=== PATIENT | female | born 1975 | race African-American/Black ===

== ENCOUNTER 2018-07-06 10:55 | Emergency (ER) | payer OTHER ==
--- NOTE | 2018-07-06 11:02 | ED Physician Documentation ---
PD HPI UPPER EXT INJURY - Stated complaint Stated Complaint: R ARM INJURY - History obtained from History obtained from: Patient - History of Present Illness Location: Right, Forearm Type of injury: Fall (was carrying heavy object when she tripped and fell forward, and the object pressured onto her forearm and caused it to bend. She felt a snap and pain in forearm right.) Where injury occurred: Work Timing - onset: Today Timing - details: Abrupt onset Worsened by: Moving, Palpating Associated symptoms: Swelling. No: Weakness, Numbness Similar symptoms before: Has not had sx before Recently seen: Not recently seen Review of Systems Constitutional: denies: Fever Nose: denies: Rhinorrhea / runny nose, Congestion Throat: denies: Sore throat Respiratory: denies: Cough GI: denies: Vomiting, Diarrhea Skin: denies: Abrasion (s), Laceration (s) Neurologic: denies: Focal weakness, Numbness PD PAST MEDICAL HISTORY - Past Medical History Cardiovascular: None Respiratory: None Neuro: None Endocrine/Autoimmune: None - Present Medications Home Medications: Ambulatory Orders Medication Instructions Recorded Confirmed Hydrocodone/Acetaminophen [[place] 1 each PO Q6H PRN #20 tablet 07/06/18 5-325 Tablet] Naproxen 500 mg PO BID #20 tablet 07/06/18 - Allergies Allergies/Adverse Reactions: Allergies Allergy/AdvReac Type Severity Reaction Status Date / Time No Known Drug Allergies Allergy Verified 07/06/18 11:05 PD ED PE NORMAL - Vitals Vital signs reviewed: Yes - General General: Alert and oriented X 3, Well developed/nourished - Derm Derm: Normal color, Warm and dry - Extremities Extremities: Other (right mid forearm with tenderness and swelling ulnar side mid forearm. Normal pulses at wrist. Hand and fingers not tender. ) - Neuro Neuro: Alert and oriented X 3, No motor deficit, No sensory deficit, Normal speech Results - Vitals Vitals: Vital Signs - 24 hr 07/06/18 07/06/18 07/06/18 11:02 11:08 12:33 Temperature 36.4 C L Heart Rate 72 77 72 Respiratory 18 16 16 Rate Blood Pressure 174/149 H 170/113 H 169/104 H O2 Saturation 100 98 95 Oxygen O2 Source Room air - Rads (name of study) right forearm Radiology: Prelim report reviewed, EMP read contemporaneously (mid shaft ulnar fracture minimally displaced and nonangulated. Radius not injured. ) Procedures - Splint (location) right forearm Splint applied by: Tech Type of splint: Fiberglass, Sugar tong Other: Patient tolerated well, No complications, Neurovascular intact, Sling provided Departure - Departure Disposition: 01 Home, Self Care Clinical Impression: Accidental fall Qualifiers: Encounter type: initial encounter Qualified Code(s): W19.XXXA - Unspecified fall, initial encounter Ulnar shaft fracture Qualifiers: Encounter type: initial encounter Fracture type: closed Fracture morphology: transverse Fracture alignment: nondisplaced Laterality: right Qualified Code(s): S52.224A - Nondisplaced transverse fracture of shaft of right ulna, initial encounter for closed fracture Condition: Stable Record reviewed to determine appropriate education?: Yes Instructions: ED Fx Forearm Radius Ulna No Redu Requ Follow-Up: [facility] [Provider Group] Prescriptions: Hydrocodone/Acetaminophen [[place] 5-325 Tablet] 1 each PO Q6H PRN #20 tablet PRN Reason: Pain Naproxen 500 mg PO BID #20 tablet Comments: Keep the arm splinted and use the sling for elevation. Rest ice and elevate the arm often to reduce swelling. Call the orthopedic clinic today for an appointment later this week or early next week for recheck and a change to a c ast. Use some anti-inflammatories such as naproxen twice daily for the next 7- 10 days. Add Tylenol or hydrocodone as needed for pain. Minimal use of the right arm, meaning just dexterity use of the fingers, for the next 2-3 weeks or until otherwise advised by orthopedics. He will be in the cast for likely 4-6 weeks. Forms: Activity restrictions Discharge Date/Time: 07/06/18 13:28
[2018-07-06] MEDS ORDERED: KETOROLAC 30 MG/ML VIAL IVP STA (11:16)
[2018-07-06] MEDS ORDERED: MORPHINE 10 MG/ML VIAL IVP STA (11:16)
[2018-07-06 12:34] VITALS: BP 169/104
--- NOTE | 2018-07-06 13:06 | XRAY Report ---
Reason: fell and had forearm pain Procedure Date: 07/06/2018 Accession Number: [id number] / [id number] Procedure: XR - Forearm RT CPT Code: FULL RESULT: EXAM: RIGHT FOREARM RADIOGRAPHY EXAM DATE: 07/06/2018 12:04 PM. CLINICAL HISTORY: Fell and had forearm pain. COMPARISON: None. TECHNIQUE: 2 views. FINDINGS: Bones: Acute, mildly comminuted right ulnar fracture with 2 mm of medial and 5 mm of posterior displacement of the more distal diaphyseal fragment. No fracture of the distal right humerus or right radius. Joints: Normal. No effusions or subluxations in the visualized wrist or elbow joints. Soft Tissues: Mid right forearm swelling noted. IMPRESSION: 1. Acute, mildly comminuted mid right ulnar fracture with 2 mm of medial and 5 mm of posterior displacement of the more distal diaphyseal fragment. 2. Normal alignment. 3. Mid right forearm swelling. RADIA
== END 2018-07-06 13:28 | disposition home or self-care (01) ==
LOC: ED 10:55
DX: S52.224A Nondisplaced transverse fracture of shaft of right ulna, initial encounter for closed fracture (principal); W01.198A Fall on same level from slipping, tripping and stumbling with subsequent striking against other object, initial encounter; Y93.89 Activity, other specified; Y99.0 Civilian activity done for income or pay
CPT/HCPCS: 29105; 96374; 96375; 99283

== ENCOUNTER 2018-08-03 08:09 | Day surgery (SDC) | payer OTHER ==
[~2018-08-03 08:09] MED LIST: ceFAZolin 2 GM/50 ML 0 GM/0 ML BAG IV ONE
[2018-08-03 08:29] VITALS: BP 169/124
[2018-08-03 08:36] LABS: HCG UR QUAL NEGATIVE
== END 2018-08-03 08:10 | disposition home or self-care (01) ==
LOC: SDS 08:09
PROVIDERS: ATTEND Orthopaedic Surgery
DX: Z53.09 Procedure and treatment not carried out because of other contraindication (principal)
CPT/HCPCS: 81025

== ENCOUNTER 2021-09-09 16:22 | Outpatient (CLI) | payer MEDICAID ==
--- NOTE | 2021-09-10 09:11 | XRAY Report ---
PROCEDURE: Knee 3 View LT INDICATIONS: PAIN,JOINT KNEE LEFT TECHNIQUE: 3 views of the left knee(s) were acquired. COMPARISON: None. FINDINGS: BONES/JOINT: No acute, displaced fracture or dislocation. Small suprapatellar joint effusion. Tricomp artment osteophytosis. Mild narrowing of the medial compartment joint space. SOFT TISSUES: No significant abnormality. IMPRESSION: 1.No acute osseous abnormality. Reviewed by: Nic Rogers MD on 09/10/2021 9:10 AM PDT Approved by: Nic Rogers MD on 09/10/2021 9:10 AM PDT Station ID: [id number]
--- NOTE | 2021-09-10 09:12 | XRAY Report ---
PROCEDURE: Knee 3 View RT INDICATIONS: PAIN IN JOINT OF RIGHT KNEE TECHNIQUE: 3 views of the right knee(s) were acquired. COMPARISON: None. FINDINGS: BONES/JOINT: No acute, displaced fracture or dislocation. Trace suprapatellar joint effusion. Tricomp artment osteophytosis. Moderate narrowing of the medial compartment joint space. ACL reconstruction c hange. SOFT TISSUES: No significant abnormality. IMPRESSION: 1.No acute osseous abnormality. Reviewed by: Nic Rogers MD on 09/10/2021 9:11 AM PDT Approved by: Nic Rogers MD on 09/10/2021 9:11 AM PDT Station ID: [id number]
--- NOTE | 2021-09-10 09:14 | XRAY Report ---
PROCEDURE: SI Joints INDICATIONS: PAIN LEFT HIP TECHNIQUE: 3 views of the sacroiliac joints were acquired. COMPARISON: None. FINDINGS: BONES/JOINTS: No acute, displaced fracture. No widening of the pubic symphysis. Mild narrowing of the left SI joint with sclerosis of the articul ar surfaces. The right SI joint appears widely patent. The femoral heads are normally seated within t he acetabulum. SOFT TISSUES: No focal abnormality. IMPRESSION: 1.Mild narrowing of the left SI joint as detailed above. Reviewed by: Nic Rogers MD on 09/10/2021 9:13 AM PDT Approved by: Nic Rogers MD on 09/10/2021 9:13 AM PDT Station ID: [id number]
== END 2021-09-09 16:23 | disposition home or self-care (01) ==
LOC: DI 16:22
PROVIDERS: ATTEND Registered Nurse
DX: M25.562 Pain in left knee (principal); M25.561 Pain in right knee; M47.898 Other spondylosis, sacral and sacrococcygeal region

== ENCOUNTER 2021-09-29 17:32 | Emergency (ER) | payer MEDICAID ==
--- NOTE | 2021-09-29 18:41 | XRAY Report ---
PROCEDURE: Knee 4 View RT INDICATIONS: R knee pain, climbing into bed TECHNIQUE: 4 views of the right knee(s) were acquired. COMPARISON: None. FINDINGS: Bones: Postsurgical changes are noted in right knee from prior ACL repair. Right knee alignment is a natomic. No fractures or dislocations. Moderate tricompartmental osteoarthritis is seen more prominen t in medial femoral tibial compartment. No suspicious bony lesions. Soft tissues: Moderate suprapatellar joint effusion is seen. No suspicious soft tissue calcifications . IMPRESSION: Prior ACL repair. Anatomic right knee alignment. No acute fracture or dislocation. Moder ate tricompartmental osteoarthritis and moderate to large joint effusion. Reviewed by: James Collins MD on 09/29/2021 6:40 PM PDT Approved by: James Collins MD on 09/29/2021 6:40 PM PDT Station ID: [id number]
[2021-09-29] MEDS ORDERED: oxyCODONE 5 MG TABLET PO STA (18:52)
--- NOTE | 2021-09-29 19:10 | ED Physician Documentation ---
PD HPI LOWER EXT INJURY - Stated complaint Stated Complaint: R LEG PX - Chief complaint Chief Complaint: Ext Problem - History obtained from History obtained from: Patient - History of Present Illness PD HPI LOW EXT INJURY LOCATION: Right, Knee Timing - onset: How many hours ago (3) Timing - duration: Hours (3) Timing - details: Abrupt onset Pain level max: 10 Pain level now: 6 Improved by: Rest, Ice, Immobilization Worsened by: Moving, Palpating Associated symptoms: Swelling. No: Weakness, Numbness, Tingling Contributing factors: Prior ortho surgery (ACL repair). No: Anticoagulated - Additional information Additional information: 46-year-old female has a history of a right knee ACL repair several years ago. Today she was moving across to her bed when she felt pain in the right knee. She states that it felt like she could not fully straighten her knee. Now feels like there is swelling in the knee. Worse with walking, better with rest. No numbness or tingling. Review of Systems Constitutional: denies: Fever, Chills GI: denies: Vomiting, Diarrhea : denies: Now EGA Skin: denies: Rash PD PAST MEDICAL HISTORY - Past Medical History Past Medical History: Yes Cardiovascular: Hypertension, Murmur Respiratory: None Neuro: None Endocrine/Autoimmune: None GI: None PROJECT GEOLOGIST: Fibroids : None HEENT: None Psych: Anxiety Musculoskeletal: None Derm: Psoriasis - Past Surgical History Past Surgical History: Yes Ortho: ACL reconstruction /PROJECT GEOLOGIST: section - Present Medications Home Medications: Ambulatory Orders Medication Instructions Recorded Confirmed Cetirizine [ZyrTEC] 10 mg PO DAILY 09/29/21 09/29/21 Lisinopril [Zestril] 10 mg PO DAILY 09/29/21 09/29/21 Oxycodone HCl/Acetaminophen 1 - 2 each PO Q6H PRN #14 tablet 09/29/21 [Percocet 5-325 mg Tablet] - Allergies Allergies/Adverse Reactions: Allergies Allergy/AdvReac Type Severity Reaction Status Date / Time No Known Drug Allergies Allergy Verified 09/29/21 17:42 - Social History Does the pt smoke?: No Smoking Status: Never smoker Does the pt drink ETOH?: No Does the pt have substance abuse?: Yes Substance Use and Type: Marijuana - Immunizations Immunizations are current?: Yes - POLST Patient has POLST: No PD ED PE NORMAL - Vitals Vital signs reviewed: Yes - General General: Alert and oriented X 3, No acute distress, Well developed/nourished - HEENT HEENT: PERRL, Moist mucous membranes - Neck Neck: Supple, no meningeal sign - Respiratory Respiratory: No respiratory distress - Derm Derm: Warm and dry - Extremities Extremities: Other (Tender to palpation over the right knee, mainly the medial aspect. There is a joint effusion as well. No bony tenderness. ACL, MCL, PCL, LCL appear intact, the limited exam secondary to pain. Unable to tolerate meniscus testing) - Neuro Neuro: Alert and oriented X 3 - Psych Psych: Normal mood, Normal affect Results - Vitals Vitals: Vital Signs - 24 hr 09/29/21 09/29/21 17:40 19:18 Temperature 36.6 C 36.7 C Heart Rate 78 72 Respiratory 16 19 Rate Blood Pressure 152/120 H 139/91 H O2 Saturation 99 99 Oxygen O2 Source Room air - Rads (name of study) Right knee x-ray Radiology: Final report received, EMP read contemporaneously, See rad report PD MEDICAL DECISION MAKING - ED course Complexity details: reviewed results, re-evaluated patient, considered differential, d/w patient ED course: Patient with a moderate to large joint effusion. It sounds as if she may have had a meniscus tear today. Placed on crutches. Will make her nonweightbearing. We will have her follow-up with orthopedics for repeat evaluation when the swelling is decreased. Will provide pain medication as well. Patient counseled regarding signs and symptoms for which I believe and urgent re-evaluation would be necessary. Patient with good understanding of and agreement to plan and is comfortable going home at this time This document was made in part using voice recognition software. While efforts are made to proofread this document, sound alike and grammatical errors may occur. IMPRESSION: Prior ACL repair. Anatomic right knee alignment. No acute fracture or dislocation. Moderate tricompartmental osteoarthritis and moderate to large joint effusion. Departure - Departure Disposition: 01 Home, Self Care Clinical Impression: Effusion, right knee Condition: Good Instructions: ED Effusion Knee Follow-Up: TICO LOWERY ARNP [Primary Care Provider] - [facility] [Provider Group] - Within 1 week Prescriptions: Oxycodone HCl/Acetaminophen [Percocet 5-325 mg Tablet] 1 - 2 each PO Q6H PRN #14 tablet PRN Reason: pain Comments: You can follow-up with your orthopedist of choice. You should be seen in the next week. You do have a joint effusion and may have a meniscus injury. You can use the pain medication as needed. You may bear weight as tolerated. You can try your knee wraps at home as well. Ice may help as well. He will likely need an MRI to evaluate her meniscus when the swelling has decreased. Your medications were sent to [facility] in [place]. I am prescribing a short course of narcotic pain medication for you. These are potentially dangerous and addictive medications that should be used carefully. These medications may constipate you. Take an zkes-blr-[id number] stool softener (docusate) twice daily with plenty of water while taking these medications. If you go 24 hours without a bowel movement, take [id number] miralax, per package instructions. Do not drink or drive while taking these medications. If you received narcotic or sedating medications while in the emergency department, do not drive for 24 hours. Store this medication in a safe, secure place and out of reach of children. It is a violation of federal law to give or sell this medication to another person or to use in a manner other than prescribed. The ED will not refill narcotic prescriptions, including prescriptions lost or stolen. To dispose of unwanted medications: 1. [facility] [address] in [place] has a medication drop box. They accept prescription medications (in pill form) Thursday through Thursday 9:00 a.m. to 5:00 p.m. 2. The [facility] [employer] accepts prescription medications (in pill form only) for disposal year round. Call for more information. 3. Contact the [facility] for the next [facility] sponsored prescription drug collection event. , [phone], or [phone]; Discharge Date/Time: 09/29/21 19:18
[2021-09-29 19:20] VITALS: BP 139/91
== END 2021-09-29 19:18 | disposition home or self-care (01) ==
LOC: ED 17:32
DX: M25.461 Effusion, right knee (principal); I10 Essential (primary) hypertension
CPT/HCPCS: 73564; 99282; 99283; A9270

== ENCOUNTER 2022-12-08 13:59 | Emergency (ER) | payer MEDICAID ==
[2022-12-08] MEDS ORDERED: NITROGLYCERIN SL 0.4 MG TABLET SL STA (14:56)
--- NOTE | 2022-12-08 14:56 | ED Physician Documentation ---
History of Present Illness - Stated complaint Stated Complaint: HIGH BP/CP/PALPITATIONS - Chief complaint Chief Complaint: Cardiac - Additonal information Additional information: 47-year-old female presents to the emergency department for evaluation of chest pain and elevated blood pressure. She states she has a longstanding history of hypertension for which she takes lisinopril 40 mg daily. She is undergoing a large amount of stress. She has been having some right-sided chest pain for quite some time but was worse this morning when she was at a care facility evaluating a client. She asked the nurse to check her blood pressure and found that it was higher than it typically is. Coupled with the chest pain she seeks evaluation here in the ER. She denies any history of tobacco use. Chest pain is not exertional. She did report some numbness on the right side of her face. She reports that she was seen by a supervisor major appliance assembly several years ago to get preoperative clearance for a hysterectomy and was told that everything was norm al. It does not sound as though the patient has ever had an echocardiogram or stress test otherwise however. Meds: Lisinopril Review of Systems Constitutional: denies: Fever, Chills Cardiac: reports: Chest pain / pressure. denies: Palpitations, Pedal edema Respiratory: reports: Reviewed and negative GI: reports: Reviewed and negative : reports: Reviewed and negative Skin: reports: Reviewed and negative Musculoskeletal: reports: Reviewed and negative Neurologic: reports: Reviewed and negative PD PAST MEDICAL HISTORY - Past Medical History Cardiovascular: Hypertension, Murmur Respiratory: None Neuro: None Endocrine/Autoimmune: None GI: None ORE BUYER: Fibroids : None HEENT: None Psych: Anxiety Musculoskeletal: None Derm: Psoriasis - Past Surgical History Past Surgical History: Yes Ortho: ACL reconstruction /ORE BUYER: section - Present Medications Home Medications: Ambulatory Orders Medication Instructions Recorded Confirmed Lisinopril [Zestril] 10 mg PO DAILY 09/29/21 12/30/21 Oxycodone HCl/Acetaminophen 1 - 2 each PO Q6H PRN #14 tablet 09/29/21 12/30/21 [Percocet 5-325 mg Tablet] Diclofenac Sodium [Voltaren 450 gm TP QID PRN #20 gm 12/30/21 Arthritis Pain] Lidocaine Patch 5% [Lidoderm Patch] 1 each TOP BID PRN #5 patch 12/30/21 Azithromycin [Zithromax] 0 mg PO DAILY #6 tablet 12/08/22 - Allergies Allergies/Adverse Reactions: Allergies Allergy/AdvReac Type Severity Reaction Status Date / Time No Known Drug Allergies Allergy Verified 12/08/22 14:14 - Social History Does the pt smoke?: No Smoking Status: Never smoker Does the pt drink ETOH?: No Does the pt have substance abuse?: Yes - Immunizations Immunizations are current?: Yes - POLST Patient has POLST: No Results - Vitals Vitals: Vital Signs - 24 hr 12/08/22 12/08/22 12/08/22 14:14 14:46 14:49 Temperature 36.5 C Heart Rate 77 84 Respiratory 22 16 Rate Blood Pressure 150/100 H 169/108 H Blood Pressure 169/108 H [Right] O2 Saturation 100 100 12/08/22 12/08/22 12/08/22 15:16 15:30 16:00 Temperature Heart Rate 78 80 77 Respiratory 20 17 16 Rate Blood Pressure 155/114 H 170/102 H 167/97 H Blood Pressure [Right] O2 Saturation 99 100 99 Oxygen O2 Source Room air - EKG (time done) 1432 EKG releavant findings:: EKG personally interpreted by author of this note. Relevant findings are: Rate: Rate (enter#) (78) Rhythm: NSR [place]: Normal Intervals: Normal MA. No: Prolonged QT Ischemia: Q waves (V3-6) Compare to prior EKG: Old EKG unavailable Computer interpretation: Agree with computer - Labs Labs: Laboratory Tests 12/08/22 12/08/22 12/08/22 16:10 16:10 16:10 WBC 10.3 RBC 4.59 Hgb 14.1 Hct 42.4 MCV 92.4 MCH 30.7 MCHC 33.3 RDW 13.1 Plt Count 317 MPV 9.5 Neut # (Auto) 6.3 Lymph # (Auto) 2.9 [place] # (Auto) 0.7 Eos # (Auto) 0.4 Baso # (Auto) 0.1 Absolute Nucleated RBC 0.00 Nucleated RBC % 0.0 Sodium 138 Potassium 3.6 Chloride 105 Carbon Dioxide 30 Anion Gap 3.0 L BUN 9 Creatinine 1.0 Estimated GFR (MDRD) 72 L Glucose 103 Calcium 9.1 Total Bilirubin 0.3 AST 13 ALT 14 Alkaline Phosphatase 51 Troponin I High Sens 2.8 Total Protein 6.9 Albumin 4.1 Globulin 2.8 Albumin/Globulin Ratio 1.5 Lipase 20 - Rads (name of study) cxr Relevant Findings:: Final report received (Possible right medial lower lobe airspace opacity without effusion.) PD Medical Decision Making - ED course Complexity details: reviewed results, re-evaluated patient, d/w patient ED course: 47-year-old female presents emergency department for evaluation of several weeks right-sided chest pain. She denies cough or fevers. Chest pain is not exertional. However today she was at a assisted living facility evaluating a client when she asked the nurse to check her blood pressure and found that it was markedly elevated in the 170s compared to what it typically is. She does report she has been undergoing undue amount of stress. On exam she is alert and well-appearing. Cardiopulmonary auscultation was unremarkable. Room air saturations 100%. A chest x-ray as interpreted by the radiologist showed a possible right lower lobe airspace opacity. I did obtain CBC and electrolytes. Per my interpretation the CBC showed no acute worrisome abnormalities and her electrolytes were without worrisome findings. Patient's EKG was nonischemic though she does have Q waves in the anterior lateral leads. There was no previous for comparison. Troponin today is negative. Patient's heart score Is 3 putting her at low risk for MACE Given the report of subacute chest pain for several weeks and the finding of opacity on chest x-ray we will treat with short course of azithromycin. However given the patient's age obesity and history of hypertension she should be referred to cardiology for stress test and echocardiogram. She will follow closely with her PCP. The usual emergent return precautions for worsening symptoms was discussed.. Departure - Departure Disposition: 01 Home, Self Care Clinical Impression: Pneumonia Qualifiers: Pneumonia type: due to unspecified organism Laterality: right Lung location: middle lobe of lung Qualified Code(s): J18.9 - Pneumonia, unspecified organism Chest pain Qualifiers: Chest pain type: unspecified Qualified Code(s): R07.9 - Chest pain, unspecified Condition: Stable Prescriptions: Azithromycin [Zithromax] 0 mg PO DAILY #6 tablet Comments: You are seen today because you have been having some chest pain for several weeks and you are concerned about your elevated blood pressure. Your labs today were essentially normal. Your EKG however does show Q waves in the anterior lateral leads. This can be a sign that you could have had a cardiac event at some time in the past. It is very critical that you discuss this EKG finding with your primary care doctor. You do need emergent referral to a supervisor major appliance assembly in order to obtain a stress test and echocardiogram. However the chest x-ray today suggest that you may have a mild pneumonia in the right middle lobe of your lung. The order to treat this we are going to start you on azithromycin an antibiotic that you will take for the next several days. If at any point you find that you are having worsening symptoms, have any fainting episodes, develop fevers or severe shortness of air you do need to return immediately to the ER. Continue to take your lisinopril though I recommend you follow close with your primary care doctor as you may need to have medication adjustments to manage the blood pressure moving forward. Forms: PCP List
--- NOTE | 2022-12-08 15:30 | XRAY Report ---
PROCEDURE: Chest 1 View X-Ray INDICATIONS: Chest pain TECHNIQUE: One view of the chest was acquired. COMPARISON: None. FINDINGS: Surgical changes and devices: None. Lungs and pleura: Minor mixed interstitial and alveolar opacity in the right medial lower lung. No d ense consolidations. No pleural effusion or pneumothorax. Mediastinum: Mediastinal contours appear normal. Heart size is normal. Bones and chest wall: No suspicious bony lesions. Overlying soft tissues appear unremarkable. IMPRESSION: Possible right medial lower lobe airspace disease without effusion. Correlate clinically. Reviewed by: Brooklyn Shepard MD on 12/08/2022 3:29 PM PDT Approved by: Brooklyn Shepard MD on 12/08/2022 3:29 PM PDT Station ID: [id number]
[2022-12-08 16:19] LABS: BASOPHILS # (AUTO) 0.1 10^3/uL (0.0-0.1); BASOPHILS % (AUTO) 0.5 %; EOSINOPHILS # (AUTO) 0.4 10^3/uL (0.0-0.7); EOSINOPHILS % (AUTO) 3.4 %; HCT - HEMATOCRIT 42.4 % (37.0-47.0); HGB - HEMOGLOBIN 14.1 g/dL (12.0-16.0); LYMPHOCYTES # (AUTO) 2.9 10^3/uL (1.5-3.5); MEAN CORPUSCULAR HEMOGLOBIN 30.7 pg (27.0-31.0); MEAN CORPUSCULAR HGB CONC 33.3 g/dL (32.0-36.0); MEAN CORPUSCULAR VOLUME 92.4 fL (81.0-99.0); MEAN PLATELET VOLUME 9.5 fL (7.9-10.8); MONOCYTES # (AUTO) 0.7 10^3/uL (0.0-1.0); MONOCYTES % (AUTO) 6.9 %; NEUTROPHILS # (AUTO) 6.3 10^3/uL (1.5-6.6); NEUTROPHILS % (AUTO) 60.9 %; PLT - PLATELET COUNT 317 10^3/uL (130-450); RED BLOOD COUNT 4.59 10^6/uL (4.20-5.40); RED CELL DISTRIBUTION WIDTH 13.1 % (12.0-15.0); WHITE BLOOD COUNT 10.3 x10^3/uL (4.8-10.8)
[2022-12-08 16:37] LABS: ALBUMIN 4.1 g/dL (3.2-5.5); ALBUMIN/GLOBULIN RATIO 1.5 (1.0-2.2); BILIRUBIN,TOTAL 0.3 mg/dL (0.2-1.0); CALCIUM 9.1 mg/dL (8.5-10.3); POTASSIUM 3.6 mmol/L (3.5-4.5); TOTAL PROTEIN 6.9 g/dL (6.4-8.9)
[2022-12-08 17:19] VITALS: BP 160/100
== END 2022-12-08 17:16 | disposition home or self-care (01) ==
LOC: ED 13:59
DX: J18.9 Pneumonia, unspecified organism (principal); R07.9 Chest pain, unspecified; E66.9 Obesity, unspecified; Z68.42 Body mass index [BMI] 45.0-49.9, adult
CPT/HCPCS: 36415; 71045; 80053; 83690; 84484; 85025; 93005; 99284; A9270

== ENCOUNTER 2023-02-16 16:36 | Outpatient (CLI) | payer MEDICAID | END 2023-02-16 16:37 | disposition critical access hospital (66) | LOC: EMS 16:36 | DX: R07.9 Chest pain, unspecified (principal); R06.02 Shortness of breath; R53.1 Weakness | CPT/HCPCS: A0425; A0427; A0999 ==

== ENCOUNTER 2023-02-16 17:07 | Emergency (ER) | payer MEDICAID ==
[2023-02-16] MEDS ORDERED: NITROGLYCERIN SL 0.4 MG TABLET SL STA (17:19)
--- NOTE | 2023-02-16 17:22 | ED Physician Documentation ---
History of Present Illness - Stated complaint Stated Complaint: CP/SOA - Chief complaint Chief Complaint: Cardiac - Additonal information Additional information: 48-year-old female presents emergency department for evaluation of chest pain t hat began about 11 this morning. She does endorse some radiation to her neck axilla and left arm. She at that time of onset event had some shortness of air but none now. Denies any nausea vomiting or diaphoresis. Seen by myself for similar in late November was advised to have cardiac follow-up. Currently scheduled to have a stress test in 48 hours time. Longstanding history of hypertension. Currently taking amlodipine and losartan which were new to her medication started 2 weeks ago. Also taking gabapentin. Denies tobacco but does smoke cannabis daily. Review of Systems Constitutional: denies: Fever Throat: reports: Reviewed and negative Cardiac: reports: Chest pain / pressure. 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: Fibroids : None HEENT: None Psych: Anxiety Musculoskeletal: None Derm: Psoriasis - Past Surgical History Past Surgical History: Yes Ortho: ACL reconstruction /HARDBO[employer]ATING MACHINE OPERATOR: section - Present Medications Home Medications: Ambulatory Orders Medication Instructions Recorded Confirmed Lisinopril [Zestril] 40 mg PO DAILY 09/29/21 02/16/23 amLODIPine [Norvasc] 2.5 mg PO DAILY 02/16/23 02/16/23 - Allergies Allergies/Adverse Reactions: Allergies Allergy/AdvReac Type Severity Reaction Status Date / Time No Known Drug Allergies Allergy Verified 02/16/23 17:16 - Social History Does the pt smoke?: No Smoking Status: Never smoker Does the pt drink ETOH?: No Does the pt have substance abuse?: Yes - Immunizations Immunizations are current?: Yes - POLST Patient has POLST: No PD ED PE NORMAL - General General: Alert and oriented X 3, No acute distress. No: Well developed/nourished (obese) - HEENT HEENT: Atraumatic - Neck Neck: Supple, no meningeal sign - Cardiac Cardiac: RRR, No murmur, Strong equal pulses - Respiratory Respiratory: No respiratory distress - Abdomen Abdomen: Normal bowel sounds, Soft - Derm Derm: Normal color, Warm and dry - Neuro Neuro: Alert and oriented X 3, planning director 2-12 intact Eye Opening: Spontaneous Motor: Obeys Commands Verbal: Oriented GCS Score: 15 Results - Vitals Vitals: Vital Signs - 24 hr 02/16/23 02/16/23 02/16/23 17:12 17:46 18:16 Temperature 36 C L Heart Rate 83 79 78 Respiratory 16 14 18 Rate Blood Pressure 183/123 H 186/115 H 144/101 H O2 Saturation 100 99 99 Oxygen O2 Source Room air - EKG (time done) 1722 EKG releavant findings:: EKG personally interpreted by author of this note. Relevant findings are: Rate: Rate (enter#) Rhythm: NSR [place]: Normal Intervals: Normal ND QRS: Normal Ischemia: Normal ST segments, Q waves (anterior leads) Compare to prior EKG: Unchanged from prior EKG, Old EKG unavailable Computer interpretation: Agree with computer - Labs Labs: Laboratory Tests 02/16/23 02/16/23 02/16/23 17:42 17:42 17:42 WBC 10.8 RBC 4.86 Hgb 14.5 Hct 44.0 MCV 90.5 MCH 29.8 MCHC 33.0 RDW 12.4 Plt Count 369 MPV 9.4 Neut # (Auto) 6.1 Lymph # (Auto) 3.7 H [place] # (Auto) 0.7 Eos # (Auto) 0.3 Baso # (Auto) 0.1 Absolute Nucleated RBC 0.00 Nucleated RBC % 0.0 Sodium 139 Potassium 3.9 Chloride 104 Carbon Dioxide 30 Anion Gap 5.0 L BUN 10 Creatinine 0.8 Estimated GFR (MDRD) 93 Glucose 94 Calcium 9.3 Total Bilirubin 0.2 AST 15 ALT 17 Alkaline Phosphatase 58 Troponin I High Sens 2.6 B-Natriuretic Peptide 6 Total Protein 6.8 Albumin 4.5 Globulin 2.3 Albumin/Globulin Ratio 2.0 Lipase 22 - Rads (name of study) cxr Relevant Findings:: Final report received (No acute process) PD Medical Decision Making - ED course Complexity details: reviewed results, re-evaluated patient, d/w patient ED course: 48-year-old female who has past medical history Mo significant for hypertension presents emergency department for evaluation of substernal chest pain began about 11 AM. It was not provoked by activity. No associated shortness of air. Seen for similar in late November by myself. Was advised to have stress testing scheduled as an outpatient. Currently scheduled to have a stress test completed in 48 hours time. Presentation the emergency department she is alert and well-appearing. Denying chest pain. Her EKG per my interpretation shows no ischemic findings and is essentially unchanged from the late November EKG. Chest x-ray was without findings of pneumonia pneumothorax or pleural effusion. We did repeat CBC electrolytes as well as a troponin and these were all per my interpretation essentially negative. At this point given the very short time for follow-up for a stress test as well as the plan to see her PCP on feel she is safe for discharge home. We discussed the usual emergent return precautions. Departure - Departure Disposition: Home, Self Care Clinical Impression: Chest pain Qualifiers: Chest pain type: unspecified Qualified Code(s): R07.9 - Chest pain, unspecified Hypertension Qualifiers: Hypertension type: primary hypertension Qualified Code(s): I10 - Essential (primary) hypertension Comments: You were seen today for evaluation of chest pain that began about 11 AM. Your EKG today is essentially unchanged from the late November EKG that was completed. Chest x-ray was normal and did not show any findings of pneumonia, pneumothorax or pleural effusion. Your labs today including a high-sensitivity troponin were all normal. Is important you continue to follow-up for your scheduled stress test on Thursday as well as with your PCP this upcoming Forms: PCP List
--- NOTE | 2023-02-16 17:42 | XRAY Report ---
PROCEDURE: Chest 1 View X-Ray INDICATIONS: Chest Pain TECHNIQUE: One view of the chest was acquired. COMPARISON: None. FINDINGS: Surgical changes and devices: None. Lungs and pleura: No pleural effusions or pneumothorax. Lungs are clear. Mediastinum: Mediastinal contours appear normal. Heart size is normal. Bones and chest wall: No suspicious bony lesions. Overlying soft tissues appear unremarkable. IMPRESSION: No acute process. Reviewed by: Kim Victor MD on 02/16/2023 5:40 PM PDT Approved by: Kim Victor MD on 02/16/2023 5:40 PM PDT Station ID: [id number]
[2023-02-16 17:52] LABS: BASOPHILS # (AUTO) 0.1 10^3/uL (0.0-0.1); BASOPHILS % (AUTO) 0.6 %; EOSINOPHILS # (AUTO) 0.3 10^3/uL (0.0-0.7); EOSINOPHILS % (AUTO) 2.8 %; HGB - HEMOGLOBIN 14.5 g/dL (12.0-16.0); LYMPHOCYTES # (AUTO) 3.7 10^3/uL (1.5-3.5); MEAN CORPUSCULAR HEMOGLOBIN 29.8 pg (27.0-31.0); MEAN CORPUSCULAR VOLUME 90.5 fL (81.0-99.0); MEAN PLATELET VOLUME 9.4 fL (7.9-10.8); MONOCYTES # (AUTO) 0.7 10^3/uL (0.0-1.0); MONOCYTES % (AUTO) 6.2 %; NEUTROPHILS # (AUTO) 6.1 10^3/uL (1.5-6.6); NEUTROPHILS % (AUTO) 56.2 %; PLT - PLATELET COUNT 369 10^3/uL (130-450); RED BLOOD COUNT 4.86 10^6/uL (4.20-5.40); RED CELL DISTRIBUTION WIDTH 12.4 % (12.0-15.0); WHITE BLOOD COUNT 10.8 x10^3/uL (4.8-10.8)
[2023-02-16 18:10] LABS: ALBUMIN 4.5 g/dL (3.2-5.5); BILIRUBIN,TOTAL 0.2 mg/dL (0.2-1.0); CALCIUM 9.3 mg/dL (8.5-10.3); CREATININE 0.8 mg/dL (0.6-1.3); POTASSIUM 3.9 mmol/L (3.5-4.5); TOTAL PROTEIN 6.8 g/dL (6.4-8.9)
[2023-02-16 18:12] LABS: TROPONIN I HIGH SENSITIVITY 2.6 ng/L (2.3-14.8)
[2023-02-16 19:02] VITALS: BP 155/107; O2SAT 98
== END 2023-02-16 19:02 | disposition home or self-care (01) ==
LOC: EDUNIT# → ED 17:07
DX: R07.9 Chest pain, unspecified (principal); I10 Essential (primary) hypertension
CPT/HCPCS: 36415; 71045; 80053; 83690; 83880; 84484; 85025; 93005; 99283; 99284; A9270